=== PATIENT | female | born 1940 | race Caucasian/White ===

== ENCOUNTER 2019-04-05 12:29 | Inpatient (IN) ==
[2019-04-05] MEDS ORDERED: ALBUTEROL SULFATE 2.5 MG/0.5 ML VIAL.NEB IH ONE (12:54)
[2019-04-05] MEDS ORDERED: ASPIRIN 81 MG TAB.CHEW PO ONE (12:54)
--- NOTE | 2019-04-05 13:01 | ERNOTE ---
Time Seen by Provider: 04/05/19 12:47 Stated Complaint: sob Presenting Symptoms:: cough Source: patient Exam Limitations: no limitations Immunizations: IMMUNIZATION HX Immunizations Up to Date Yes Allergies/Adverse Reactions: Allergies codeine Allergy (Verified 04/05/19 12:43) Hives acetaminophen [From Tylenol] Adverse Reaction (Verified 04/05/19 12:43) Vomiting Home Medications: HOME MEDICATIONS Albuterol Sulfate [Ventolin HFA] 1 puff INHALATION Q6H 04/05/19 [Last Taken Unknown] - History of Present Ilness Narrative: Patient started about a month ago with URI symptoms, mainly shortness of breath and cough. She was initially seen at the acute care clinic in [place], was given Rx for prednisone, albuterol and a medication for mucus. Her symptoms have not improved but progressed since, shortness of breath with exertion and laying flat in bed, needs two pillows to sleep. She stopped smoking over 20 years ago after 15py history, no history of lung or heart disease Timing: getting worse Severity: moderate Frequency/Possible Cause: Reports: no prior episodes Modifying Factors - Improves: Reports: rest Modifying Factors - Worsens: Reports: activity Associated Symptoms: Reports: chest pain/soreness - with activity, cough, shortness of breath. Denies: fever/chills Prior Treatment: Reports: recently seen. Denies: currently on antibiotics Medical History (Updated 04/05/19 @ 14:15 by Keiko Lau MD) No significant medical problems Surgical History: Surgical History (Updated 04/05/19 @ 12:43 by Demetrice Dubon RN) No history of previous surgery Social History: (Last Reviewed 04/05/19 @ 13:01 by Keiko Lau MD) Tobacco: Smoking Status: Former smoker Alcohol: alcohol intake: current Alcohol type: wine alcohol intake frequency: a few times a month Substance Use: substance use type: does not use Physical Exam - Physical Exam General Appearance: Present: wd/wn, alert, no apparent distress Ears, Nose, Throat: Present: normal pharynx Respiratory: Present: chest nontender, expiration (prolonged), wheezing, other - increased respiratory rate and work of breathing Cardiovascular/Chest: Present: regular rate, rhythm, no murmur Gastrointestinal/Abdominal: Present: normal bowel sounds, nontender, nondistended, soft Extremity Exam: Present: pedal edema - trace on ankles Neurological Exam: Present: alert, oriented, normal mood/affect Skin Exam: Present: normal color, warm/dry Progress - Results and Orders Patient's Lab Results:: I have reviewed the patient's lab results. - Vital Signs Patient's Vital Signs:: I have reviewed the patient's vital signs. Vital Signs: Vital Signs 04/05/19 12:34 04/05/19 12:45 Temperature 36.5 C Pulse Rate 90 84 Respiratory Rate 24 H 20 Blood Pressure 181/98 H 193/96 H O2 Sat by Pulse Oximetry 86 L 95 - EKG EKG #1 EKG: NSR, no ST T wave changes EKG read: Interp. by me - Progress/Reassessment Chief Complaint: Upper Respiratory Symptoms Progress Note-Subjective: 04/05/19 13:49 not much improvement in wheezing after albuterol treatment 04/05/19 14:04 discussed test results with patient and friend offered admission for CHF/COPD and hypoxemia 04/05/19 14:10 discussed with bay Adam to admit for CHF/COPD, hypoxemia 04/05/19 14:36 500ml output after lasix 20mg slightly improved air movement and wheezing Departure Clinical Impression: CHF (congestive heart failure) Qualifiers: Heart failure type: unspecified Heart failure chronicity: acute Qualified Code(s): I50.9 - Heart failure, unspecified COPD (chronic obstructive pulmonary disease) Qualifiers: COPD type: unspecified COPD Qualified Code(s): J44.9 - Chronic obstructive pulmonary disease, unspecified - Departure Disposition: Still a patient Condition: Stable
[2019-04-05 13:09] LABS: Hematocrit 49.8 % (37.0-47.0); Hemoglobin 16.4 gm/dL (12.5-16.0); Mean Cell Volume 96.7 fl (78-100); Mean Corpuscular Hemoglobin 31.8 pg (27-31); Mean Corpuscular Hgb Conc 32.9 g/dl (32-36); Mean Platelet Volume 10.9 fl (8-12.5); Neutrophil # 3.6 K/mm3 (1.3-6.0); Neutrophil % 56.6 % (42-75.0); Platelet Count 253 K/mm3 (150-450); Red Blood Count 5.15 M/mm3 (4.2-5.4); Red Cell Distribution Width 13.3 % (11.5-14.0); White Blood Count 6.3 K/mm3 (4.0-10.5)
[2019-04-05 13:28] LABS: Albumin * 3.9 gm/dl (3.4-5.0); Anion Gap 12.1 mmol/L (6.8-13.8); BUN/Creatinine Ratio 26.3 (9.0-21.6); Bilirubin, Total 0.4 mg/dL (0.0-1.1); Ca. Corrected For Albumin 9.4 mg/dL (8.4-10.2); Calcium * 9.6 mg/dL (7.9-10.9); Carbon Dioxide 30.4 mmol/L (24-32.6); Potassium 4.5 mmol/L (3.4-4.6); Total Protein 7.5 gm/dL (6.2-8.2); Troponin I 0.17 ng/mL (0.00-0.10)
[2019-04-05] MEDS ORDERED: FUROSEMIDE 10 MG/ML VIAL IV ONE (13:47)
[2019-04-05] MEDS ORDERED: LISINOPRIL 5 MG TABLET PO SCH (14:30)
[2019-04-05 14:36] LABS: Urine Bilirubin Negative (NEGATIVE); Urine Blood Negative /ul (NEGATIVE); Urine Ketone Negative (NEGATIVE); Urine Nitrite Negative (NEGATIVE); Urine Protein Negative (NEGATIVE); Urine Urobilinogen Normal (NORMAL)
[2019-04-05 14:56] LABS: Urine Appearance Clear (CLEAR); Urine Bacteria None Seen; Urine Color Pale Yellow; Urine RBC None Seen /hpf (0-5); Urine WBC 0-5 /hpf (0-5)
--- NOTE | 2019-04-05 15:47 | HP ---
Chief Complaint - Chief Complaint Date of Service: 04/05/19 Time of Service: 03:08 Chief Complaint: SOB and dry cough for 1 month History of Present Illness: 78-year-old female with no significant past medical history presents with co mplaints of shortness of breath and nonproductive cough for the past 1 month. She states that she went to an urgent care 1 month ago and was diagnosed with cold. She was given an inhaler and prednisone and asked to follow-up with her primary care physician in 1 month. She states her symptoms began to progressively worsen and she presented to the emergency room today. Chest x-ray in the ER is positive for pulmonary venous congestion/interstitial edema, mild cardiomegaly suggestive of congestive heart failure, hyperinflated lung volumes compatible with COPD/emphysema. BNP is 190, mild elevation of her troponin at 0.0.17. On presentation she was found to be hypoxic with oxygen saturation of 86%. She was placed on 2 L nasal cannula with oxygen improving to the 90s. Was also found to be hypertensive. Blood pressure of 192/101. She was started on any milligrams IV Lasix, albuterol and lisinopril 5 mg. Should be admitted for further evaluation and management of new onset congestive heart failure and COPD. Medical History (Updated 04/05/19 @ 16:31 by Antoinette Montgomery MD) No significant medical problems Surgical History: Surgical History (Updated 04/05/19 @ 14:09 by Demetrice Dubon RN) History of bunionectomy Family History: Family History (Last Updated 04/05/19 @ 15:04 by Susie Ocampo RN) Mother Father Emphysema/COPD Social History: (Last Updated 04/05/19 @ 15:10 by Susie Ocampo RN) Social History: Marital status: / lives independently: Yes number of children: 3 number of grandchildren: 6 caregiver/support person: Yes caregiver/support person comment: Erica Wadsworth current occupational status: retired Highest education level completed: Associate degree: academi Financial difficulty paying for basics: not very hard Tobacco: Smoking Status: Former smoker Alcohol: alcohol intake: current Alcohol type: wine alcohol intake frequency: a few times a month Substance Use: substance use type: does not use Pets: pets and animals: none Exercise: Physical activity type: bicycling Physical activity counseling: advised >2 times/week res Physical activity functional status: independent ambulation Moderate/strenuous exercise - number of days: 5 frequency: 5-6 times per week duration: 15-30 minutes/day Tatyana/Synagogue: tatyana/buddhist: Muslim Tatyana Safety: seatbelt use: always Home Safety: water heater temp set < 120 deg: Yes working smoke detector in home: Yes fire extinguisher in home: Yes carbon monox detector in home: No firearms in home: Yes firearms unloaded and locked: Yes Review Of Systems (GEN) - Review of Systems Generalized/Overall Review: Absent: Chills, Fever EENTM: Absent: Eye Pain Respiratory: Present: Cough, Shortness of Breath Cardiac: Absent: Chest Pain Abdominal: Absent: Abdominal Pain Misc: All systems neg except as marked Immunizations: IMMUNIZATION HX Immunizations Up to Date Yes Allergies/Adverse Reactions: Allergies Allergy/AdvReac Type Severity Reaction Status Date / Time codeine Allergy Mild Hives Verified 04/05/19 15:03 acetaminophen [From Tylenol] AdvReac Intermediate Vomiting Verified 04/05/19 15:03 Home Medications: HOME MEDICATIONS Albuterol Sulfate [Ventolin HFA] 1 puff INHALATION Q6H 04/05/19 [Last Taken Unknown] Beta-Carotene(A) W-C , E/Min [Ocuvite] 1 tab PO Q2D 04/05/19 [Last Taken 04/03/19] Cholecalciferol [Vitamin D] 2,000 unit PO Q2D 04/05/19 [Last Taken 04/03/19] Cyanocobalamin (Vitamin B-12) [Vitamin B-12] 1,000 mcg PO Q2D 04/05/19 [Last Taken 04/03/19] Exam - Exam Vital Signs: Vital Signs - Last Taken Temp 36.6 C 04/05/19 15:00 Pulse 82 04/05/19 15:00 Resp 18 04/05/19 15:00 BP 165/88 H 04/05/19 15:00 Pulse Ox 95 04/05/19 15:00 Constitutional: Present: Alert, Cooperative, Well developed, Well nourished, Elderly ENT Exam: Present: hearing grossly normal Eye Exam: bilateral eye: normal inspection Neck: Present: non-tender, trachea midline. Absent: lymphadenopathy (R), lymphadenopathy (L) Back Exam: Present: normal inspection, no CVA tenderness. Absent: vertebral tenderness Respiratory: Present: no accessory muscle use, crackles - Mild in left lung base, wheezing - Expiratory wheezes noted bilaterally throughout. Absent: lungs clear, rhonchi Cardiovascular/Chest: Present: normal peripheral pulses, regular rate, rhythm, no murmur, edema - 1+ bilateral lower extremities Peripheral Pulses: dorsalis-pedis (R): 1+, dorsalis-pedis (L): 1+ Abdomen: Present: Normal bowel sounds, soft, nontender Extremity: Present: lower extremity edema - 1+. Bilateral lower extremities Skin Exam: Present: normal color, warm/dry Neurologic: Present: alert, normal mood/affect Appearance: Present: appropriate appearance, appropriate insight Eye contact: Present: cooperative, good eye contact Thoughts: Present: normal thought pattern, normal mood /affect Diagnostic Studies: Abnormal Lab Results 04/05/19 04/05/19 Range/Units 12:55 12:55 Hgb 16.4 H (12.5-16.0) gm/dL Hct 49.8 H (37.0-47.0) % MCH 31.8 H (27-31) pg Eosinophils % 13.1 H (0.0-3.0) % Lymphocytes # 1.34 L (1.5-3.5) k/mm3 Eosinophils # 0.8 H (0.0-0.7) k/mm3 BUN 26 H (3-23) mg/dL Est GFR (Non-Af Amer) 58 L (60-130) mL/min BUN/Creatinine Ratio 26.3 H (9.0-21.6) Troponin I 0.170 H* (0.00-0.10) ng/mL Laboratory Results WBC 6.3 K/mm3 (4.0-10.5) 04/05/19 12:55 RBC 5.15 M/mm3 (4.2-5.4) 04/05/19 12:55 Hgb 16.4 gm/dL (12.5-16.0) H 04/05/19 12:55 Hct 49.8 % (37.0-47.0) H 04/05/19 12:55 MCV 96.7 fl (78-100) 04/05/19 12:55 MCH 31.8 pg (27-31) H 04/05/19 12:55 MCHC 32.9 g/dl (32-36) 04/05/19 12:55 RDW 13.3 % (11.5-14.0) 04/05/19 12:55 Plt Count 253 K/mm3 (150-450) 04/05/19 12:55 MPV 10.9 fl (8-12.5) 04/05/19 12:55 Immature Gran % (Auto) 0.20 % (0.001-0.429) 04/05/19 12:55 Immature Gran # (Auto) 0.01 K/mm3 (0.000-0.0310) 04/05/19 12:55 56.6 % (42-75.0) 04/05/19 12:55 21.2 % (20-51) 04/05/19 12:55 8.1 % (0.0-9) 04/05/19 12:55 13.1 % (0.0-3.0) H 04/05/19 12:55 0.8 % (0.0-1.0) 04/05/19 12:55 Nucleated RBC % 0.0 k/mm3 (0-1) 04/05/19 12:55 3.6 K/mm3 (1.3-6.0) 04/05/19 12:55 1.34 k/mm3 (1.5-3.5) L 04/05/19 12:55 0.5 k/mm3 (0.0-1.0) 04/05/19 12:55 0.8 k/mm3 (0.0-0.7) H 04/05/19 12:55 Absolute Basophils 0.1 k/mm3 (0.0-0.1) 04/05/19 12:55 Sodium 140 mmol/L (132-142) 04/05/19 12:55 140 mmol/L (130-142) 04/05/19 12:55 Potassium 4.5 mmol/L (3.4-4.6) 04/05/19 12:55 Chloride 102 mmol/L (97-106) 04/05/19 12:55 Carbon Dioxide 30.4 mmol/L (24-32.6) 04/05/19 12:55 12.1 mmol/L (6.8-13.8) 04/05/19 12:55 BUN 26 mg/dL (3-23) H 04/05/19 12:55 0.99 mg/dL (0.4-1.4) 04/05/19 12:55 Est GFR (Non-Af Amer) 58 mL/min (60-130) L 04/05/19 12:55 26.3 (9.0-21.6) H 04/05/19 12:55 103 mg/dL (70-110) 04/05/19 12:55 Calcium 9.6 mg/dL (7.9-10.9) 04/05/19 12:55 Calcium Adj for Albumin 9.4 mg/dL (8.4-10.2) 04/05/19 12:55 0.4 mg/dL (0.0-1.1) 04/05/19 12:55 AST 26 U/L (0-48) 04/05/19 12:55 ALT 30 U/L (19-67) 04/05/19 12:55 102 U/L (50-170) 04/05/19 12:55 0.170 ng/mL (0.00-0.10) H* 04/05/19 12:55 B-Natriuretic Peptide 190 pg/mL (5-550) 04/05/19 12:55 7.5 gm/dL (6.2-8.2) 04/05/19 12:55 3.9 gm/dl (3.4-5.0) 04/05/19 12:55 Pale yellow 04/05/19 14:31 Clear (CLEAR) 04/05/19 14:31 6.0 pH (5.0-7.0) 04/05/19 14:31 Ur Specific [place] 1.010 SP.GR. (1.005-1.010) 04/05/19 14:31 Negative mg/dL (NEGATIVE) 04/05/19 14:31 Negative mg/dL (NEGATIVE) 04/05/19 14:31 Negative mg/dL (NEGATIVE) 04/05/19 14:31 Negative /ul (NEGATIVE) 04/05/19 14:31 Negative (NEGATIVE) 04/05/19 14:31 Negative mg/dl (NEGATIVE) 04/05/19 14:31 Normal EU/dl (NORMAL) 04/05/19 14:31 Ur Leukocyte Esterase Negative /ul (NEGATIVE) 04/05/19 14:31 None seen /hpf (0-5) 04/05/19 14:31 0-5 /hpf (0-5) 04/05/19 14:31 Ur Epithelial Cells 0-5 /hpf (0-5) 04/05/19 14:31 None seen (NONE) 04/05/19 14:31 No culture indicated 04/05/19 14:31 Assessment/Plan - Narrative Narrative: 78-year-old female with no significant past medical history presents with complaints of shortness of breath and nonproductive cough for the past 1 month. She states that she went to an urgent care 1 month ago and was diagnosed with cold. She states her symptoms began to progressively worsen and she presented to the emergency room today. Chest x-ray in the ER is positive for pulmonary venous congestion/interstitial edema, mild cardiomegaly suggestive of congestive heart failure, hyperinflated lung volumes compatible with COPD/emphysema. BNP is 190, mild elevation of her troponin at 0.0.17. She will be admitted for further evaluation and management of new onset congestive heart failure and COPD. - Assessment/Plan (1) New onset of congestive heart failure Assessment: She will need an echocardiogram that she can get as an outpatient. Start Lasix 20 mg twice a day, strict I's and O's and daily weights. Problem: Acute (2) COPD (chronic obstructive pulmonary disease) Assessment: Start duo nebs every 6 hours as needed for shortness of breath and oxygen supplementation as needed. Problem: Acute Qualifiers: COPD type: unspecified COPD Qualified Code(s): J44.9 - Chronic obstructive pulmonary disease, unspecified (3) HTN (hypertension) Assessment: I will give her 1 more dose of lisinopril 5 mg because her blood pressure still elevated. I will start her on 10 mg daily starting tomorrow. Problem: Acute Qualifiers: Hypertension type: essential hypertension Qualified Code(s): I10 - Essential (primary) hypertension
[2019-04-05] MEDS ORDERED: LISINOPRIL 5 MG TABLET PO ONE (16:45)
[2019-04-05 19:25] LABS: CKMB 4.2 ng/mL (0.0-9.0)
[2019-04-05 19:34] LABS: Troponin I 0.25 ng/mL (0.00-0.10)
[2019-04-05] MEDS: FUROSEMIDE 10 MG/ML VIAL IV SCH (19:48)
[2019-04-06] MEDS: ALBUTEROL SULFATE/IPRATROPIUM 3 ML NEBU IH PRN (03:01)
[2019-04-06 05:34] LABS: Hemoglobin 16.7 gm/dL (12.5-16.0); Mean Cell Volume 96.4 fl (78-100); Mean Corpuscular Hemoglobin 31.6 pg (27-31); Mean Corpuscular Hgb Conc 32.7 g/dl (32-36); Neutrophil % 54.6 % (42-75.0); Platelet Count 258 K/mm3 (150-450); Red Blood Count 5.29 M/mm3 (4.2-5.4); Red Cell Distribution Width 13.3 % (11.5-14.0); White Blood Count 7.3 K/mm3 (4.0-10.5)
[2019-04-06 05:46] LABS: Albumin * 4.1 gm/dl (3.4-5.0); Anion Gap 13.8 mmol/L (6.8-13.8); BUN/Creatinine Ratio 24.2 (9.0-21.6); Bilirubin, Total 0.6 mg/dL (0.0-1.1); Ca. Corrected For Albumin 9.1 mg/dL (8.4-10.2); Calcium * 9.5 mg/dL (7.9-10.9); Carbon Dioxide 30.3 mmol/L (24-32.6); Potassium 4.1 mmol/L (3.4-4.6); Total Protein 7.7 gm/dL (6.2-8.2)
[2019-04-06] MEDS: FUROSEMIDE 10 MG/ML VIAL IV SCH (06:53)
[2019-04-06] MEDS: LISINOPRIL 5 MG TABLET PO SCH (08:33)
[2019-04-06] MEDS ORDERED: CHOLECALCIFEROL 1,000 UNIT CAPSULE PO SCH (09:00)
[2019-04-06] MEDS ORDERED: CYANOCOBALAMIN 1,000 MCG TABLET PO SCH (09:00)
[2019-04-06] MEDS ORDERED: LISINOPRIL 10 MG TABLET PO SCH (09:00)
[2019-04-06] MEDS: ALBUTEROL SULFATE 2.5 MG/0.5 ML VIAL.NEB IH PRN (10:40)
[2019-04-06] MEDS ORDERED: ENOXAPARIN SODIUM 40 MG/0.4 ML SYRG SC SCH (10:45)
--- NOTE | 2019-04-06 11:07 | PN ---
Subjective - Date and Time Seen Date: 04/06/19 Time: 09:15 Objective - Review of Systems Generalized/Overall Review: Denies: Chills, Fever Respiratory: Denies: Shortness of Breath Cardiac: Denies: Chest Pain, Edema Abdominal: Denies: Abdominal Pain Misc: All systems neg except as marked - Vitals Vitals: Last Vital Signs Temp 36.4 C 04/06/19 07:06 Pulse 83 04/06/19 10:50 Resp 19 04/06/19 10:50 BP 132/79 04/06/19 08:33 Pulse Ox 93 04/06/19 10:44 - Abnormal Lab Findings Abnormal Lab Findings: Abnormal Lab Results 04/05/19 04/05/19 04/05/19 Range/Units 12:55 12:55 19:00 Hgb 16.4 H (12.5-16.0) gm/dL Hct 49.8 H (37.0-47.0) % MCH 31.8 H (27-31) pg Lymphocytes % (20-51) % Eosinophils % 13.1 H (0.0-3.0) % Lymphocytes # 1.34 L (1.5-3.5) k/mm3 Eosinophils # 0.8 H (0.0-0.7) k/mm3 BUN 26 H (3-23) mg/dL Est GFR (Non-Af Amer) 58 L (60-130) mL/min BUN/Creatinine Ratio 26.3 H (9.0-21.6) CK-MB (CK-2) Rel Index 6.7 H (0.0-3.6) Troponin I 0.170 H* 0.250 H* (0.00-0.10) ng/mL 04/06/19 04/06/19 04/06/19 Range/Units 01:05 05:25 05:25 Hgb 16.7 H (12.5-16.0) gm/dL Hct 51.0 H (37.0-47.0) % MCH 31.6 H (27-31) pg Lymphocytes % 19.4 L (20-51) % Eosinophils % 16.4 H (0.0-3.0) % Lymphocytes # 1.41 L (1.5-3.5) k/mm3 Eosinophils # 1.2 H (0.0-0.7) k/mm3 BUN 29 H (3-23) mg/dL Est GFR (Non-Af Amer) 46 L D (60-130) mL/min BUN/Creatinine Ratio 24.2 H (9.0-21.6) CK-MB (CK-2) Rel Index (0.0-3.6) Troponin I 0.166 H* (0.00-0.10) ng/mL - Exam Constitutional: Present: Alert, Cooperative, Well developed, Well nourished, No distress, Elderly ENT Exam: Present: hearing grossly normal Neck: Absent: lymphadenopathy (R), lymphadenopathy (L) Respiratory: Present: no respiratory distress, no accessory muscle use, wheezing - End-expiratory bilaterally throughout all lung martinez. Absent: crackles, rhonchi Cardiovascular/Chest: Present: normal peripheral pulses, regular rate, rhythm, no murmur, edema - Trace bilateral lower extremity edema Abdomen: Present: Normal bowel sounds, soft, nontender Extremity: Present: lower extremity edema - Trace bilateral lower extremity Skin Exam: Present: normal color, warm/dry Neurologic: Present: alert, normal mood/affect Appearance: Present: appropriate appearance, appropriate insight Eye contact: Present: cooperative, good eye contact Thoughts: Present: normal thought pattern, normal mood /affect Assessment/Plan Plan Narrative: 78-year-old female with no significant past medical history presents with complaints of shortness of breath and nonproductive cough for the past 1 month. She states that she went to an urgent care 1 month ago and was diagnosed with cold. Chest x-ray in the ER is positive for pulmonary venous congestion/i nterstitial edema, mild cardiomegaly suggestive of congestive heart failure, hyperinflated lung volumes compatible with COPD/emphysema. BNP is 190, mild elevation of her troponin at 0.0.17. On presentation she was found to be hypoxic with oxygen saturation of 86%. She was placed on 2 L nasal cannula with oxygen improving to the 90s. Was also found to be hypertensive. Blood pressure of 192/101. She was started on 20 milligrams IV Lasix, albuterol and lisinopril 5 mg. Should be admitted for further evaluation and management of new onset congestive heart failure exacerbation and COPD exacerbation. She feels much better today however on ambulation her oxygenation dropped down into the 80s. She continues to have an expiratory wheezing. I will start her on prednisone 40 mg daily for 5 days. She has diuresed 1.2 L in the past 24 hours. Continue with Lasix 20 mg IV daily. Blood pressure has improved significantly with the lisinopril. Continue lisinopril 5 mg daily. Continue to wean off of supplemental oxygen as tolerated. - Problems/Diagnosis (1) New onset of congestive heart failure Problem: Acute (2) COPD (chronic obstructive pulmonary disease) Problem: Acute Qualifiers: COPD type: unspecified COPD Qualified Code(s): J44.9 - Chronic obstructive pulmonary disease, unspecified (3) HTN (hypertension) Problem: Acute Qualifiers: Hypertension type: essential hypertension Qualified Code(s): I10 - Essential (primary) hypertension (4) Acute kidney injury Problem: Acute Narrative: Likely secondary to diuresis. I will cut back to Lasix 20 mg oral daily. Repeat BMP in the morning.
[2019-04-06] MEDS: predniSONE 20 MG TABLET PO SCH (11:35)
[2019-04-07 05:22] LABS: Hematocrit 49.8 % (37.0-47.0); Hemoglobin 16.4 gm/dL (12.5-16.0); Mean Cell Volume 96.5 fl (78-100); Mean Corpuscular Hemoglobin 31.8 pg (27-31); Mean Corpuscular Hgb Conc 32.9 g/dl (32-36); Neutrophil # 5.3 K/mm3 (1.3-6.0); Neutrophil % 69.5 % (42-75.0); Platelet Count 259 K/mm3 (150-450); Red Blood Count 5.16 M/mm3 (4.2-5.4); Red Cell Distribution Width 13.2 % (11.5-14.0); White Blood Count 7.7 K/mm3 (4.0-10.5)
[2019-04-07 05:34] LABS: Albumin * 3.6 gm/dl (3.4-5.0); Anion Gap 16.1 mmol/L (6.8-13.8); Bilirubin, Total 0.5 mg/dL (0.0-1.1); Ca. Corrected For Albumin 9.4 mg/dL (8.4-10.2); Calcium * 9.4 mg/dL (7.9-10.9); Carbon Dioxide 28.3 mmol/L (24-32.6); Potassium 4.4 mmol/L (3.4-4.6); Total Protein 7.1 gm/dL (6.2-8.2)
[2019-04-07] MEDS: ALBUTEROL SULFATE 2.5 MG/0.5 ML VIAL.NEB IH PRN (08:58)
[2019-04-07] MEDS: ALBUTEROL SULFATE/IPRATROPIUM 3 ML NEBU IH PRN (08:58)
[2019-04-07] MEDS ORDERED: FUROSEMIDE 20 MG TABLET PO SCH (09:00)
[2019-04-07] MEDS: LISINOPRIL 5 MG TABLET PO SCH (09:23)
[2019-04-07] MEDS: predniSONE 20 MG TABLET PO SCH (09:23)
--- NOTE | 2019-04-07 11:27 | DS ---
Date of Discharge:: 04/07/19 Description of Stay: Per the H&P, "78-year-old female with no significant past medical history pr esents with complaints of shortness of breath and nonproductive cough for the past 1 month. She states that she went to an urgent care 1 month ago and was diagnosed with cold. She was given an inhaler and prednisone and asked to follow-up with her primary care physician in 1 month. She states her symptoms began to progressively worsen and she presented to the emergency room today. Chest x-ray in the ER is positive for pulmonary venous congestion/interstitial edema, mild cardiomegaly suggestive of congestive heart failure, hyperinflated lung volumes compatible with COPD/emphysema. BNP is 190, mild elevation of her troponin at 0.0.17. On presentation she was found to be hypoxic with oxygen saturation of 86%. She was placed on 2 L nasal cannula with oxygen improving to the 90s. Was also found to be hypertensive. Blood pressure of 192/101. She was started on any milligrams IV Lasix, albuterol and lisinopril 5 mg. Should be admitted for further evaluation and management of new onset congestive heart failure and COPD." Blood pressure and respiratory rate improved throughout her stay. She continued to have some wheezing, which improved with nebulizer treatments. She reports hawkins namg been prescribed ventolin, but her insurance company wouldn't cover it for a diagnosis of wheezing. She improved after lasix and prednisone. Her BP improved with 5 mg lisinopril. On the day of DC, she felt better, and was ready to go home. Her oxygen remained greater than 88% with ambulation on room air. Will order ventolin for DC, and a nebulizer with albuterol solution. Procedures Performed: none Results and Findings: Lab Pending Results 04/05/19 12:55: WBC 6.3, RBC 5.15, Hgb 16.4 H, Hct 49.8 H, MCV 96.7, MCH 31.8 H, MCHC 32.9, RDW 13.3, Plt Count 253, MPV 10.9, Immature Gran % (Auto) 0.20, Immature Gran # (Auto) 0.01, Neutrophils % 56.6, Lymphocytes % 21.2, Monocytes % 8.1, Eosinophils % 13.1 H, Basophils % 0.8, Nucleated RBC % 0.0, Neutrophils # 3.6, Lymphocytes # 1.34 L, Monocytes # 0.5, Eosinophils # 0.8 H, Absolute Basophils 0.1 04/05/19 12:55: Sodium 140, Plasma Sodium 140, Potassium 4.5, Chloride 102, Carbon Dioxide 30.4, Anion Gap 12.1, BUN 26 H, Creatinine 0.99, Est GFR (Non-Af Amer) 58 L, BUN/Creatinine Ratio 26.3 H, Random Glucose 103, Calcium 9.6, Calcium Adj for Albumin 9.4, Total Bilirubin 0.4, AST 26, ALT 30, Alkaline Phosphatase 102, Troponin I 0.170 H*, B-Natriuretic Peptide 190, Total Protein 7.5, Albumin 3.9 04/05/19 14:31: Urine Color Pale yellow, Urine Appearance Clear, Urine pH 6.0, Ur Specific [place] 1.010, Urine Protein Negative, Urine Glucose (UA) Negative, Urine Ketones Negative, Urine Blood Negative, Urine Nitrate Negative, Urine Bilirubin Negative, Urine Urobilinogen Normal, Ur Leukocyte Esterase Negative, Urine RBC None seen, Urine WBC 0-5, Ur Epithelial Cells 0-5, Urine Bacteria None seen, Urine Culture Comments No culture indicated 04/05/19 19:00: Creatine Kinase 63, CK-MB (CK-2) 4.2, CK-MB (CK-2) Rel Index 6.7 H, Troponin I 0.250 H* 04/06/19 01:05: Troponin I 0.166 H* 04/06/19 05:25: WBC 7.3, RBC 5.29, Hgb 16.7 H, Hct 51.0 H, MCV 96.4, MCH 31.6 H, MCHC 32.7, RDW 13.3, Plt Count 258, MPV 11.0, Immature Gran % (Auto) 0.10, Immature Gran # (Auto) 0.01, Neutrophils % 54.6, Lymphocytes % 19.4 L, Monocytes % 8.9, Eosinophils % 16.4 H, Basophils % 0.6, Nucleated RBC % 0.0, Neutrophils # 4.0, Lymphocytes # 1.41 L, Monocytes # 0.7, Eosinophils # 1.2 H, Absolute Basophils 0.0 04/06/19 05:25: Sodium 140, Plasma Sodium 140, Potassium 4.1, Chloride 100, Carbon Dioxide 30.3, Anion Gap 13.8, BUN 29 H, Creatinine 1.20, Est GFR (Non-Af Amer) 46 L D, BUN/Creatinine Ratio 24.2 H, Random Glucose 99, Calcium 9.5, Calcium Adj for Albumin 9.1, Total Bilirubin 0.6, AST 29, ALT 24, Alkaline Ph osphatase 101, Total Protein 7.7, Albumin 4.1 04/07/19 05:19: WBC 7.7, RBC 5.16, Hgb 16.4 H, Hct 49.8 H, MCV 96.5, MCH 31.8 H, MCHC 32.9, RDW 13.2, Plt Count 259, MPV 11.0, Immature Gran % (Auto) 0.30, Immature Gran # (Auto) 0.02, Neutrophils % 69.5, Lymphocytes % 19.1 L, Monocytes % 9.8 H, Eosinophils % 1.0, Basophils % 0.3, Nucleated RBC % 0.0, Neutrophils # 5.3, Lymphocytes # 1.46 L, Monocytes # 0.8, Eosinophils # 0.1, Absolute Basophils 0.0 04/07/19 05:19: Sodium 138, Plasma Sodium 138, Potassium 4.4, Chloride 98, Carbon Dioxide 28.3, Anion Gap 16.1 H, BUN 40 H, Creatinine 1.25, Est GFR (Non- Af Amer) 44 L, BUN/Creatinine Ratio 32.0 H, Random Glucose 108, Calcium 9.4, Calcium Adj for Albumin 9.4, Total Bilirubin 0.5, AST 21, ALT 15 L, Alkaline Phosphatase 93, Total Protein 7.1, Albumin 3.6 Discharge Location: Home Disposition: Home self-care Condition: Stable Discharge Activity: Activity as tolerated Discharge Diet: General/regular food Additional Patient Instructions (free text): -Please make TCM appointment with Dr. Montgomery unless fpc discharge, or if following up with outside provider. Thank you! Damaris @ [facility] [phone] or Angeline at [facility] [phone]. Prescriptions (Any new or edited meds): Albuterol Sulfate/Ipratropium [Duoneb 2.5-0.5MG/3ML Soln] 3 ml INHALATION Q6H PRN #1 bottle PRN Reason: Shortness Of Breath/Wheezing Furosemide [Lasix] 20 mg PO DAILY #30 tab predniSONE [Prednisone] 40 mg PO DAILY #3 tab Albuterol Sulfate [Ventolin HFA] 1 puff INHALATION Q6H #1 inhaler Lisinopril [Zestril] 5 mg PO DAILY #30 tab Complete Home Medications List: Complete Home Medication List: Albuterol Sulfate [Ventolin HFA] 1 puff INHALATION Q6H 04/05/19 Beta-Carotene(A) W-C , E/Min [Ocuvite] 1 tab PO Q2D 04/05/19 Bimatoprost [Lumigan 0.01% Ophthalmic Solution] 1 drp EACHEYE HS 04/05/19 Cholecalciferol [Vitamin D] 2,000 unit PO Q2D 04/05/19 Cyanocobalamin (Vitamin B-12) [Vitamin B-12] 1,000 mcg PO Q2D 04/05/19 Albuterol Sulfate [Ventolin HFA] 1 puff INHALATION Q6H #1 inhaler 04/07/19 Albuterol Sulfate/Ipratropium [Duoneb 2.5-0.5MG/3ML Soln] 3 ml INHALATION Q6H PRN #1 bottle 04/07/19 Furosemide [Lasix] 20 mg PO DAILY #30 tab 04/07/19 Lisinopril [Zestril] 5 mg PO DAILY #30 tab 04/07/19 predniSONE [Prednisone] 40 mg PO DAILY #3 tab 04/07/19
[2019-04-07 12:07] VITALS: BP 131/59
== END 2019-04-07 12:35 | disposition home or self-care (01) | DRG 292 ==
LOC: ER 12:29 → MS 12:29 → OBSVTOIN 14:18 → MS 14:52
PROVIDERS: ADMIT Internal Medicine; ATTEND Internal Medicine
DX: I50.9 Heart failure, unspecified; T50.1X5A Adverse effect of loop [high-ceiling] diuretics, initial encounter; J44.9 Chronic obstructive pulmonary disease, unspecified; I11.0 Hypertensive heart disease with heart failure; N17.9 Acute kidney failure, unspecified; R09.02 Hypoxemia; Z87.891 Personal history of nicotine dependence; R74.8 Abnormal levels of other serum enzymes
CPT/HCPCS: 36415; 71020; 71046; 80053; 81001; 82550; 82553; 83519; 83880; 84484; 85025; 93005; 94640; 94664; 94760; 96374; 96376; 99284; G0378

== ENCOUNTER 2019-04-23 10:44 | Observation (INO) ==
[2019-04-23] MEDS ORDERED: ALBUTEROL SULFATE/IPRATROPIUM 3 ML NEBU IH ONE (11:05)
[2019-04-23] MEDS ORDERED: predniSONE 20 MG TABLET PO ONE (11:06)
[2019-04-23 11:18] LABS: Hematocrit 49.4 % (37.0-47.0); Hemoglobin 16.1 gm/dL (12.5-16.0); Mean Cell Volume 97.2 fl (78-100); Mean Corpuscular Hemoglobin 31.7 pg (27-31); Mean Corpuscular Hgb Conc 32.6 g/dl (32-36); Neutrophil # 5.4 K/mm3 (1.3-6.0); Neutrophil % 65.2 % (42-75.0); Platelet Count 211 K/mm3 (150-450); Red Blood Count 5.08 M/mm3 (4.2-5.4); Red Cell Distribution Width 13.4 % (11.5-14.0); White Blood Count 8.3 K/mm3 (4.0-10.5)
[2019-04-23 11:26] LABS: Prothrombin Time (Patient) 9.9 Seconds (9.1-10.7)
[2019-04-23 11:27] LABS: Partial Thrombolplastin Time 25.1 Seconds (24-32)
[2019-04-23 11:34] LABS: ALT 22 U/L (19-67); AST 20 U/L (0-48); Albumin * 4.1 gm/dl (3.4-5.0); Alkaline Phosphatase * 79 U/L (50-170); Anion Gap 12.2 mmol/L (6.8-13.8); BNP * 122 pg/mL (5-550); BUN/Creatinine Ratio 31.5 (9.0-21.6); Bilirubin, Total 0.4 mg/dL (0.0-1.1); Blood Urea Nitrogen 39 mg/dL (3-23); Ca. Corrected For Albumin 9.3 mg/dL (8.4-10.2); Calcium * 9.7 mg/dL (7.9-10.9); Carbon Dioxide 30.6 mmol/L (24-32.6); Chloride 105 mmol/L (97-106); Glucose * 102 mg/dL (70-110); Potassium 4.8 mmol/L (3.4-4.6); Sodium 143 mmol/L (132-142); Total Protein 7.7 gm/dL (6.2-8.2); Troponin I Less than 0.017 ng/mL (0.00-0.10)
[2019-04-23] MEDS ORDERED: ALBUTEROL SULFATE 2.5 MG/0.5 ML VIAL.NEB IH ONE ×2 (12:16→12:23)
--- NOTE | 2019-04-23 13:29 | ERNOTE ---
Chest Pain/Cardiac HPI Date of Service: 04/23/19 Chief Complaint: Chest Pain Time Seen by Provider: 04/23/19 10:54 Source: patient Exam Limitations: no limitations Immunizations: IMMUNIZATION HX Immunizations Up to Date No History of Influenza Vaccine No Hx Pneumococcal Vaccination No Allergies/Adverse Reactions: Allergies codeine Allergy (Mild, Verified 04/23/19 10:59) Hives acetaminophen [From Tylenol] Adverse Reaction (Intermediate, Verified 04/23/19 10:59) Vomiting Home Medications: HOME MEDICATIONS Albuterol Sulfate [Ventolin HFA] 1 puff INHALATION Q6H 04/05/19 [Last Taken Unknown] Beta-Carotene(A) W-C , E/Min [Ocuvite] 1 tab PO Q2D 04/05/19 [Last Taken 04/03/19] Bimatoprost [Lumigan 0.01% Ophthalmic Solution] 1 drp EACHEYE HS 04/05/19 [Last Taken Unknown] Cholecalciferol [Vitamin D] 2,000 unit PO Q2D 04/05/19 [Last Taken 04/03/19] Cyanocobalamin (Vitamin B-12) [Vitamin B-12] 1,000 mcg PO Q2D 04/05/19 [Last Taken 04/03/19] Albuterol Sulfate [Ventolin HFA] 1 puff INHALATION Q6H #1 inhaler 04/07/19 [Last Taken Unknown] Albuterol Sulfate/Ipratropium [Duoneb 2.5-0.5MG/3ML Soln] 3 ml INHALATION Q6H PRN #1 bottle 04/07/19 [Last Taken Unknown] Furosemide [Lasix] 20 mg PO DAILY #30 tab 04/07/19 [Last Taken Unknown] Lisinopril [Zestril] 5 mg PO DAILY #30 tab 04/07/19 [Last Taken Unknown] predniSONE [Prednisone] 40 mg PO DAILY #3 tab 04/07/19 [Last Taken Unknown] Narrative: Patient presents to the ED for worsening SOB. She had been in the hospital for COPD and new onset CHF. She relates she felt good while she was on the steroids but since coming off the steroids her SOB has been worsening. She has chest tightness that she thinks is from coughing. No fever. This is gradual and gradually worsening. No fever. Mild leg swelling. She had an ECHO today and was sent here after that for her worsening SOB. Timing: constant, getting worse Severity/Quality: moderate Location: other - chest tightness, worse with cough Chest Pain Radiation: no radiation Activities at Onset: none Modifying Factors - Improves: Present: nothing Modifying Factors - Worsens: Present: other - cough Associated Symptoms: Present: cough, shortness of breath. Absent: headache, syncope, palpitations, vomiting, abdominal pain Prior Chest Pain/Cardiac Workup: Reports: echocardiogram Prior Treatment: Reports: recently seen, recently hospitalized Review of Systems - Review of Systems Constitutional: Absent: fever EYE: Present: no symptoms reported Respiratory: Present: shortness of breath, cough Cardiology: Present: See HPI Gastrointestinal/Abdominal: Absent: abdominal pain Neurological: Absent: weakness All Other Systems: All systems neg except as marked Medical History (Updated 04/16/19 @ 10:12 by Lisbeth Cortes CMA) Hypertension No significant medical problems Surgical History: Surgical History (Updated 04/05/19 @ 14:09 by Demetrice Dubon RN) History of bunionectomy Family History: Family History (Last Reviewed 04/23/19 @ 13:22 by Antony Licona MD) Mother Father Emphysema/COPD Social History: (Last Reviewed 04/23/19 @ 13:22 by Antony Licona MD) Social History: Marital status: / lives independently: Yes number of children: 3 number of grandchildren: 6 caregiver/support person: Yes caregiver/support person comment: Erica Wadsworth current occupational status: retired Highest education level completed: Associate degree: academi Financial difficulty paying for basics: not very hard Tobacco: Smoking Status: Former smoker Alcohol: alcohol intake: current Alcohol type: wine alcohol intake frequency: a few times a month Substance Use: substance use type: does not use Pets: pets and animals: none Exercise: Physical activity type: bicycling Physical activity counseling: advised >2 times/week res Physical activity functional status: independent ambulation Moderate/strenuous exercise - number of days: 5 frequency: 5-6 times per week duration: 15-30 minutes/day Tatyana/Pentecostalism: tatyana/yazidism: Judaism Tatyana Safety: seatbelt use: always Home Safety: water heater temp set < 120 deg: Yes working smoke detector in home: Yes fire extinguisher in home: Yes carbon monox detector in home: No firearms in home: Yes firearms unloaded and locked: Yes Physical Exam - Physical Exam General Appearance: Present: alert, no apparent distress Head Exam: Present: normal inspection, no evidence of injury Eye Exam: Normal inspection: bilateral, PERRL: bilateral Ears, Nose, Throat: Present: normal ENT inspection Neck: Present: normal inspection Respiratory: Present: other - mild tachypnea, diffuse significant wheezing bilaterally with I;E wheezes. Hypoxia is noted, upper 80s. Cardiovascular/Chest: Present: regular rate, rhythm, normal peripheral pulses Gastrointestinal/Abdominal: Present: normal bowel sounds, nontender, soft Back Exam: Present: normal range of motion Extremity Exam: Present: other - minimal bilateral pretibial edema. No DVT findings Neurological Exam: Present: alert, no motor/sensory deficits Skin Exam: Present: normal color, warm/dry Progress - Results and Orders Patient's Lab Results:: I have reviewed the patient's lab results. - Vital Signs Patient's Vital Signs:: I have reviewed the patient's vital signs. Vital Signs: Vital Signs 04/23/19 10:48 04/23/19 11:08 04/23/19 11:11 Temperature 36.0 C Pulse Rate 83 83 87 Respiratory Rate 30 H 30 H Blood Pressure 156/86 H 159/85 H O2 Sat by Pulse Oximetry 93 87 L 04/23/19 11:19 04/23/19 12:24 Temperature Pulse Rate 84 87 Respiratory Rate 30 H 22 H Blood Pressure O2 Sat by Pulse Oximetry 94 93 - EKG EKG #1 EKG: NSR EKG read: Interp. by me EKG Comments: NSR rate 84. Non-specific ST/T wave changes, no STEMI noted - X-Ray X-Ray #1 X-Ray: chest Interpretation: Interp. by me X-ray Comments: I reviewed images and official radiology report - Progress/Reassessment Chief Complaint: Chest Pain Progress Note-Subjective: 04/23/19 13:25 Patient placed on oxygen for her hypoxia. Given steroids and 3 nebs, still wheezing. Sx C/W COPD exacerbation. Clinically I feel CHF is not the cause of her SOB. No suggestion of PE. D/W Dr Montgomery who saw the patient in the ED and will admit the patient. Patient is agreeable. Departure Clinical Impression: COPD exacerbation, Hypoxia - Departure Disposition: Still a patient Condition: Stable
[2019-04-23] MEDS ORDERED: ALBUTEROL SULFATE/IPRATROPIUM 3 ML NEBU IH PRN (14:27)
[2019-04-23] MEDS ORDERED: FUROSEMIDE 20 MG TABLET PO ONE (15:19)
--- NOTE | 2019-04-23 16:54 | HP ---
Chief Complaint - Chief Complaint Date of Service: 04/23/19 Time of Service: 13:06 Chief Complaint: Shortness of breath x1 day History of Present Illness: 78-year-old female with a past medical history of congestive heart failure, COPD and hypertension presents with complaints of shortness of breath x1 day. She states that her symptoms began yesterday morning and are worse with exertion. She went for an echocardiogram today and was found to be short of breath with walking out of the exam room. She was sent to the emergency department for further evaluation. Echocardiogram EF of 70%, left ventricle cavity normal in size, grade 1 diastolic dysfunction, trace mitral regurg and mild tricuspid regurg. Chest x-ray showed hyperinflation of the lung with pulmonary vascular congestion. She had an oxygen saturation of 87%. She received 3 nebulizer DuoNeb treatments with relief of her symptoms. She received a dose of 60 mg prednisone in the emergency department. She was admitted for COPD exacerbation. Medical History (Updated 04/23/19 @ 14:21 by Susie Ocampo RN) COPD (chronic obstructive pulmonary disease) Congestive heart failure Hypertension Surgical History: Surgical History (Updated 04/05/19 @ 14:09 by Demetrice Dubon RN) History of bunionectomy Family History: Family History (Last Reviewed 04/23/19 @ 13:22 by Antony Licona MD) Mother Father Emphysema/COPD Social History: (Last Reviewed 04/23/19 @ 13:22 by Antony Licona MD) Social History: Marital status: / lives independently: Yes number of children: 3 number of grandchildren: 6 caregiver/support person: Yes caregiver/support person comment: Erica Wadsworth current occupational status: retired Highest education level completed: Associate degree: academi Financial difficulty paying for basics: not very hard Tobacco: Smoking Status: Former smoker Alcohol: alcohol intake: current Alcohol type: wine alcohol intake frequency: a few times a month Substance Use: substance use type: does not use Pets: pets and animals: none Exercise: Physical activity type: bicycling Physical activity counseling: advised >2 times/week res Physical activity functional status: independent ambulation Moderate/strenuous exercise - number of days: 5 frequency: 5-6 times per week duration: 15-30 minutes/day Tatyana/Judaism: tatyana/congregation: [employer] Tatyana Safety: seatbelt use: always Home Safety: water heater temp set < 120 deg: Yes working smoke detector in home: Yes fire extinguisher in home: Yes carbon monox detector in home: No firearms in home: Yes firearms unloaded and locked: Yes Review Of Systems (GEN) - Review of Systems Generalized/Overall Review: Absent: Chills, Fever EENTM: Absent: Eye Pain Respiratory: Present: Shortness of Breath, Wheezing Cardiac: Absent: Chest Pain Abdominal: Absent: Abdominal Pain Misc: All systems neg except as marked Immunizations: IMMUNIZATION HX Immunizations Up to Date No History of Influenza Vaccine No Hx Pneumococcal Vaccination No Allergies/Adverse Reactions: Allergies Allergy/AdvReac Type Severity Reaction Status Date / Time codeine Allergy Mild Hives Verified 04/23/19 14:22 acetaminophen [From Tylenol] AdvReac Intermediate Vomiting Verified 04/23/19 14:22 Home Medications: HOME MEDICATIONS Beta-Carotene(A) W-C , E/Min [Ocuvite] 1 tab PO Q2D 04/05/19 [Last Taken 04/22/19] Bimatoprost [Lumigan 0.01% Ophthalmic Solution] 1 drp EACHEYE HS 04/05/19 [Last Taken 04/22/19] Cholecalciferol [Vitamin D] 2,000 unit PO Q2D 04/05/19 [Last Taken 04/22/19] Cyanocobalamin (Vitamin B-12) [Vitamin B-12] 1,000 mcg PO Q2D 04/05/19 [Last Taken 04/22/19] Albuterol Sulfate [Ventolin HFA] 1 puff INHALATION Q6H #1 inhaler 04/07/19 [Last Taken Unknown] Albuterol Sulfate/Ipratropium [Duoneb 2.5-0.5MG/3ML Soln] 3 ml INHALATION Q6H PRN #1 bottle 04/07/19 [Last Taken 04/23/19] Furosemide [Lasix] 20 mg PO DAILY #30 tab 04/07/19 [Last Taken 04/22/19] Lisinopril [Zestril] 5 mg PO DAILY #30 tab 04/07/19 [Last Taken 04/23/19] Exam - Exam Vital Signs: Vital Signs - Last Taken Temp 36.7 C 04/23/19 14:25 Pulse 89 04/23/19 15:31 Resp 20 04/23/19 14:25 BP 148/72 04/23/19 15:31 Pulse Ox 93 04/23/19 14:25 Constitutional: Present: Alert, Cooperative, Well developed, Well nourished, No distress, Elderly ENT Exam: Present: hearing grossly normal Eye Exam: bilateral eye: normal inspection, PERRL, EOMI Neck: Present: supple, tender midline. Absent: lymphadenopathy (R), lymphadenopathy (L) Back Exam: Present: normal inspection, no CVA tenderness, no vertebral tenderness Respiratory: Present: no respiratory distress, wheezing - Respiratory and expiratory wheeze. Worse on expiration. Wheezing audible throughout all lung martinez bilaterally.. Absent: lungs clear, crackles, rhonchi Cardiovascular/Chest: Present: normal peripheral pulses, regular rate, rhythm, no murmur Peripheral Pulses: dorsalis-pedis (R): 1+, dorsalis-pedis (L): 1+ Abdomen: Present: Normal bowel sounds, soft, nontender Extremity: Present: no pedal edema Skin Exam: Present: normal color, warm/dry Neurologic: Present: alert, normal mood/affect Appearance: Present: appropriate appearance, appropriate insight Eye contact: Present: cooperative, good eye contact Thoughts: Present: normal mood /affect Diagnostic Studies: Abnormal Lab Results 04/23/19 04/23/19 Range/Units 11:05 11:05 Hgb 16.1 H (12.5-16.0) gm/dL Hct 49.4 H (37.0-47.0) % MCH 31.7 H (27-31) pg Lymphocytes % 16.4 L (20-51) % Eosinophils % 11.2 H (0.0-3.0) % Lymphocytes # 1.36 L (1.5-3.5) k/mm3 Eosinophils # 0.9 H (0.0-0.7) k/mm3 Sodium 143 H (132-142) mmol/L Plasma Sodium 143 H (130-142) mmol/L Potassium 4.8 H (3.4-4.6) mmol/L BUN 39 H (3-23) mg/dL Est GFR (Non-Af Amer) 44 L (60-130) mL/min BUN/Creatinine Ratio 31.5 H (9.0-21.6) Laboratory Results WBC 8.3 K/mm3 (4.0-10.5) 04/23/19 11:05 RBC 5.08 M/mm3 (4.2-5.4) 04/23/19 11:05 Hgb 16.1 gm/dL (12.5-16.0) H 04/23/19 11:05 Hct 49.4 % (37.0-47.0) H 04/23/19 11:05 MCV 97.2 fl (78-100) 04/23/19 11:05 MCH 31.7 pg (27-31) H 04/23/19 11:05 MCHC 32.6 g/dl (32-36) 04/23/19 11:05 RDW 13.4 % (11.5-14.0) 04/23/19 11:05 Plt Count 211 K/mm3 (150-450) 04/23/19 11:05 MPV 11.0 fl (8-12.5) 04/23/19 11:05 Immature Gran % (Auto) 0.20 % (0.001-0.429) 04/23/19 11:05 Immature Gran # (Auto) 0.02 K/mm3 (0.000-0.0310) 04/23/19 11:05 65.2 % (42-75.0) 04/23/19 11:05 16.4 % (20-51) L 04/23/19 11:05 6.3 % (0.0-9) 04/23/19 11:05 11.2 % (0.0-3.0) H 04/23/19 11:05 0.7 % (0.0-1.0) 04/23/19 11:05 Nucleated RBC % 0.0 k/mm3 (0-1) 04/23/19 11:05 5.4 K/mm3 (1.3-6.0) 04/23/19 11:05 1.36 k/mm3 (1.5-3.5) L 04/23/19 11:05 0.5 k/mm3 (0.0-1.0) 04/23/19 11:05 0.9 k/mm3 (0.0-0.7) H 04/23/19 11:05 Absolute Basophils 0.1 k/mm3 (0.0-0.1) 04/23/19 11:05 PT 9.9 Seconds (9.1-10.7) 04/23/19 11:05 INR (Anticoag Therapy) 1.00 INR (0.92-1.08) 04/23/19 11:05 PTT (Elsie) 25.1 Seconds (24-32) 04/23/19 11:05 Sodium 143 mmol/L (132-142) H 04/23/19 11:05 143 mmol/L (130-142) H 04/23/19 11:05 Potassium 4.8 mmol/L (3.4-4.6) H 04/23/19 11:05 Chloride 105 mmol/L (97-106) 04/23/19 11:05 Carbon Dioxide 30.6 mmol/L (24-32.6) 04/23/19 11:05 12.2 mmol/L (6.8-13.8) 04/23/19 11:05 BUN 39 mg/dL (3-23) H 04/23/19 11:05 1.24 mg/dL (0.4-1.4) 04/23/19 11:05 Est GFR (Non-Af Amer) 44 mL/min (60-130) L 04/23/19 11:05 31.5 (9.0-21.6) H 04/23/19 11:05 102 mg/dL (70-110) 04/23/19 11:05 Calcium 9.7 mg/dL (7.9-10.9) 04/23/19 11:05 Calcium Adj for Albumin 9.3 mg/dL (8.4-10.2) 04/23/19 11:05 0.4 mg/dL (0.0-1.1) 04/23/19 11:05 AST 20 U/L (0-48) 04/23/19 11:05 ALT 22 U/L (19-67) 04/23/19 11:05 79 U/L (50-170) 04/23/19 11:05 Less than 0.017 ng/mL (0.00-0.10) 04/23/19 11:05 B-Natriuretic Peptide 122 pg/mL (5-550) 04/23/19 11:05 7.7 gm/dL (6.2-8.2) 04/23/19 11:05 4.1 gm/dl (3.4-5.0) 04/23/19 11:05 Assessment/Plan - Narrative Narrative: 78-year-old female with a past medical history of congestive heart failure, COPD and hypertension presents with complaints of shortness of breath x1 day. She states that her symptoms began yesterday morning and are worse with exertion. Chest x-ray showed hyperinflation of the lung with pulmonary vascular congestion. She had an oxygen saturation of 87%. She received 3 nebulizer DuoNeb treatments with relief of her symptoms. She received a dose of 60 mg prednisone in the emergency department. She was admitted for COPD exacerbation. - Assessment/Plan (1) COPD exacerbation Assessment: Start her on duo nebs, oxygen supplementation as needed, and prednisone 40 mg daily. Problem: Acute (2) Hypoxia Assessment: Likely secondary to COPD. Problem: Acute (3) HTN (hypertension) Assessment: Continue home medications. Problem: Chronic Qualifiers: Hypertension type: essential hypertension (4) Diastolic congestive heart failure Assessment: Not in exacerbation, continue home dose of Lasix. Problem: Acute Qualifiers: Heart failure chronicity: chronic Qualified Code(s): I50.32 - Chronic diastolic (congestive) heart failure
[2019-04-23] MEDS: ALBUTEROL SULFATE 2.5 MG/0.5 ML VIAL.NEB IH SCH (18:07)
[2019-04-23] MEDS ORDERED: BIMATOPROST 25 DROP BTL EACHEYE SCH (21:00)
[2019-04-24] MEDS: ALBUTEROL SULFATE 2.5 MG/0.5 ML VIAL.NEB IH SCH ×2 (00:19→06:16)
[2019-04-24 05:55] LABS: Hematocrit 49.5 % (37.0-47.0); Hemoglobin 15.9 gm/dL (12.5-16.0); Mean Cell Volume 97.6 fl (78-100); Mean Corpuscular Hemoglobin 31.4 pg (27-31); Mean Corpuscular Hgb Conc 32.1 g/dl (32-36); Mean Platelet Volume 11.4 fl (8-12.5); Neutrophil # 5.1 K/mm3 (1.3-6.0); Neutrophil % 68.7 % (42-75.0); Platelet Count 220 K/mm3 (150-450); Red Blood Count 5.07 M/mm3 (4.2-5.4); Red Cell Distribution Width 13.6 % (11.5-14.0); White Blood Count 7.5 K/mm3 (4.0-10.5)
[2019-04-24 06:11] LABS: Albumin * 3.8 gm/dl (3.4-5.0); Anion Gap 11.5 mmol/L (6.8-13.8); BUN/Creatinine Ratio 28.1 (9.0-21.6); Bilirubin, Total 0.5 mg/dL (0.0-1.1); Calcium * 9.2 mg/dL (7.9-10.9); Carbon Dioxide 29.8 mmol/L (24-32.6); Potassium 4.3 mmol/L (3.4-4.6); Total Protein 7.3 gm/dL (6.2-8.2)
--- NOTE | 2019-04-24 08:45 | DS ---
(1) COPD exacerbation Problem: Acute (2) Hypoxia Problem: Resolved (3) HTN (hypertension) Problem: Chronic Qualifiers: Hypertension type: essential hypertension Qualified Code(s): I10 - Essential (primary) hypertension (4) Diastolic congestive heart failure Problem: Chronic Qualifiers: Heart failure chronicity: chronic Qualified Code(s): I50.32 - Chronic diastolic (congestive) heart failure Description of Stay: 78-year-old female with a past medical history of congestive heart failure, COPD and hypertension presents with complaints of shortness of breath x1 day. She states that her symptoms began yesterday morning and are worse with exertion. Chest x-ray showed hyperinflation of the lung with pulmonary vascular congestion. She had an oxygen saturation of 87%. She received 3 nebulizer DuoNeb treatments with relief of her symptoms. She received a dose of 60 mg prednisone in the emergency department. She was admitted for COPD exacerbation. She states she feels 100% better this morning. She ambulated without oxygen without difficulty. She is stable for discharge home. She will follow-up with me in the office in 1 week. I will send her home on prednisone 40mg daily for 3 more days. Total of 5 days. Procedures Performed: none Results and Findings: Lab Pending Results 04/23/19 11:05: WBC 8.3, RBC 5.08, Hgb 16.1 H, Hct 49.4 H, MCV 97.2, MCH 31.7 H, MCHC 32.6, RDW 13.4, Plt Count 211, MPV 11.0, Immature Gran % (Auto) 0.20, Immature Gran # (Auto) 0.02, Neutrophils % 65.2, Lymphocytes % 16.4 L, Monocytes % 6.3, Eosinophils % 11.2 H, Basophils % 0.7, Nucleated RBC % 0.0, Neutrophils # 5.4, Lymphocytes # 1.36 L, Monocytes # 0.5, Eosinophils # 0.9 H, Absolute Basophils 0.1 04/23/19 11:05: PT 9.9, INR (Anticoag Therapy) 1.00, PTT ([place]) 25.1 04/23/19 11:05: Sodium 143 H, Plasma Sodium 143 H, Potassium 4.8 H, Chloride 105, Carbon Dioxide 30.6, Anion Gap 12.2, BUN 39 H, Creatinine 1.24, Est GFR (N on-Af Amer) 44 L, BUN/Creatinine Ratio 31.5 H, Random Glucose 102, Calcium 9.7, Calcium Adj for Albumin 9.3, Total Bilirubin 0.4, AST 20, ALT 22, Alkaline Phosphatase 79, Troponin I Less than 0.017, B-Natriuretic Peptide 122, Total Protein 7.7, Albumin 4.1 04/24/19 05:15: WBC 7.5, RBC 5.07, Hgb 15.9, Hct 49.5 H, MCV 97.6, MCH 31.4 H, MCHC 32.1, RDW 13.6, Plt Count 220, MPV 11.4, Immature Gran % (Auto) 0.30, Immature Gran # (Auto) 0.02, Neutrophils % 68.7, Lymphocytes % 18.6 L, Monocytes % 10.1 H, Eosinophils % 2.0, Basophils % 0.3, Nucleated RBC % 0.0, Neutrophils # 5.1, Lymphocytes # 1.39 L, Monocytes # 0.8, Eosinophils # 0.2, Absolute Basophils 0.0 04/24/19 05:15: Sodium 141, Plasma Sodium 141, Potassium 4.3, Chloride 104, Carbon Dioxide 29.8, Anion Gap 11.5, BUN 39 H, Creatinine 1.39, Est GFR (Non-Af Amer) 39 L, BUN/Creatinine Ratio 28.1 H, Random Glucose 98, Calcium 9.2, Calcium Adj for Albumin 9.0, Total Bilirubin 0.5, AST 15, ALT 19, Alkaline Phosphatase 80, Total Protein 7.3, Albumin 3.8 Discharge Location: Home Disposition: Home self-care Condition: Stable Discharge Activity: Activity as tolerated Discharge Diet: Low salt Referrals: Antoinette Montgomery MD [Primary Care Provider] - Prescriptions (Any new or edited meds): predniSONE [Prednisone] 40 mg PO DAILY #6 tab Complete Home Medications List: Complete Home Medication List: Beta-Carotene(A) W-C , E/Min [Ocuvite] 1 tab PO Q2D 04/05/19 Bimatoprost [Lumigan 0.01% Ophthalmic Solution] 1 drp EACHEYE 04/05/19 Cholecalciferol [Vitamin D] 2,000 unit PO Q2D 04/05/19 Cyanocobalamin (Vitamin B-12) [Vitamin B-12] 1,000 mcg PO Q2D 04/05/19 Albuterol Sulfate [Ventolin HFA] 1 puff INHALATION Q6H #1 inhaler 04/07/19 Albuterol Sulfate/Ipratropium [Duoneb 2.5-0.5MG/3ML Soln] 3 ml INHALATION Q6H PRN #1 bottle 04/07/19 Furosemide [Lasix] 20 mg PO DAILY #30 tab 04/07/19 Lisinopril [Zestril] 5 mg PO DAILY #30 tab 04/07/19 predniSONE [Prednisone] 40 mg PO DAILY #6 tab 04/24/19
[2019-04-24] MEDS ORDERED: predniSONE 20 MG TABLET PO SCH (09:00)
[2019-04-24] MEDS ORDERED: LISINOPRIL 5 MG TABLET PO SCH (09:00)
[2019-04-24] MEDS ORDERED: FUROSEMIDE 20 MG TABLET PO SCH (09:00)
[2019-04-24] MEDS ORDERED: CHOLECALCIFEROL 1,000 UNIT CAPSULE PO SCH (09:00)
[2019-04-24] MEDS ORDERED: CYANOCOBALAMIN 1,000 MCG TABLET PO SCH (09:00)
[2019-04-24] MEDS ORDERED: BETA-CAROTENE(A) W-C , E/MIN 1 TAB TABLET PO SCH (09:00)
[2019-04-24 09:34] VITALS: BP 141/75
== END 2019-04-24 10:03 | disposition home or self-care (01) ==
LOC: MS 10:44 → ER 10:44 → MS 14:25
PROVIDERS: ADMIT Internal Medicine; ATTEND Internal Medicine
CPT/HCPCS: 36415; 71020; 71046; 80053; 83519; 83880; 84484; 85025; 85610; 85730; 93005; 94640; 94664; 99285; G0378

== ENCOUNTER 2019-08-25 11:07 | Observation (INO) ==
[2019-08-25] MEDS ORDERED: ALBUTEROL SULFATE/IPRATROPIUM 3 ML NEBU IH ONE (11:13)
--- NOTE | 2019-08-25 11:16 | ERNOTE ---
Dyspnea - Date Date of Service: 08/25/19 - General Presenting Symptoms: shortness of breath, difficulty of breathing Time Seen by Provider: 08/25/19 11:10 Source: patient Exam Limitations: no limitations - Immun/Allergies/Home Medications Immunizations: IMMUNIZATION HX Immunizations Up to Date Yes Immunizations Comment Pt states she does not get shots History of Influenza Vaccine No Hx Pneumococcal Vaccination No Allergies/Adverse Reactions: Allergies codeine Allergy (Mild, Verified 08/25/19 11:14) Hives acetaminophen [From Tylenol] Adverse Reaction (Intermediate, Verified 08/25/19 11:14) Vomiting Home Medications: HOME MEDICATIONS Beta-Carotene(A) W-C , E/Min [Ocuvite] 1 tab PO Q2D 04/05/19 [Last Taken 04/22/19] Bimatoprost [Lumigan 0.01% Ophthalmic Solution] 1 drp EACHEYE HS 04/05/19 [Last Taken 04/22/19] Cholecalciferol [Vitamin D] 2,000 unit PO Q2D 04/05/19 [Last Taken 04/22/19] Cyanocobalamin (Vitamin B-12) [Vitamin B-12] 1,000 mcg PO Q2D 04/05/19 [Last Taken 04/22/19] Albuterol Sulfate [Ventolin HFA] 1 puff INHALATION Q6H #1 inhaler 04/07/19 [Last Taken Unknown] furosemide 20 mg tablet 20 mg PO DAILY #90 tab 06/05/19 [Last Taken Unknown] lisinopril 5 mg tablet 5 mg PO DAILY #90 tab 06/05/19 [Last Taken Unknown] budesonide-formoterol HFA 160 mcg-4.5 mcg/actuation aerosol inhaler 2 inh IH BID #10.2 g 08/21/19 [Last Taken Unknown] ipratropium-albuterol 0.5 mg-3 mg(2.5 mg base)/3 mL nebulization soln 3 ml INHALATION Q6H PRN #180 ml 08/21/19 [Last Taken Unknown] - History of Present Illness Narrative: The patient is a 78 year old female who presents for dyspnea which has been present for 3 days. There are associated symptoms of fatigue, productive cough and nasal drainage with congestion. The patient reports (pain). There are no alleviating factors. There are aggravating factors of activity. Previous treatments have included: Albuterol neb without improvement. The past medical history includes: HTN, COPD and CHF. The social history is positive for former smoker. The patient has had no known ill contacts. Patient states she was ill with URI symptoms over the holidays but symptoms had improved but then worsened again on Tuesday. Review of Systems - Review of Systems Constitutional: Present: chills, fatigue. Absent: fever EYE: Present: no symptoms reported ENT: Present: nose congestion, nasal drainage, sore throat. Absent: ear pain Respiratory: Present: shortness of breath, cough Cardiology: Present: no symptoms reported. Absent: chest pain Gastrointestinal/Abdominal: Present: no symptoms reported. Absent: nausea, vomiting, diarrhea, abdominal pain Genitourinary: Present: no symptoms reported. Absent: dysuria, decreased urinary output Musculoskeletal: Present: no symptoms reported Skin: Present: no symptoms reported. Absent: rash Neurological: Present: no symptoms reported All Other Systems: All systems neg except as marked Medical History (Last Reviewed 08/25/19 @ 11:15 by WOOYD Hart) COPD (chronic obstructive pulmonary disease) Congestive heart failure Hypertension Surgical History: Surgical History (Last Reviewed 08/25/19 @ 11:15 by WOODY Hart) History of bunionectomy Family History: Family History (Last Reviewed 08/25/19 @ 11:15 by WOODY Hart) Mother Father Emphysema/COPD Social History: (Last Reviewed 08/25/19 @ 11:15 by WOODY Hart) Social History: Marital status: / lives independently: Yes number of children: 3 number of grandchildren: 6 caregiver/support person: Yes caregiver/support person comment: Erica Wadsworth current occupational status: retired Highest education level completed: Associate degree: academi Financial difficulty paying for basics: not very hard Tobacco: Smoking Status: Former smoker Alcohol: alcohol intake: current Alcohol type: wine alcohol intake frequency: a few times a month Substance Use: substance use type: does not use Pets: pets and animals: none Exercise: Physical activity type: bicycling Physical activity counseling: advised >2 times/week res Physical activity functional status: independent ambulation Moderate/strenuous exercise - number of days: 5 frequency: 5-6 times per week duration: 15-30 minutes/day Tatyana/Advent: tatyana/yazdanism: Faith Tatyana Safety: seatbelt use: always Home Safety: water heater temp set < 120 deg: Yes working smoke detector in home: Yes fire extinguisher in home: Yes carbon monox detector in home: No firearms in home: Yes firearms unloaded and locked: Yes Physical Exam - Physical Exam General Appearance: Present: wd/wn, alert, moderate distress Head Exam: Present: normal inspection Eye Exam: Normal inspection: bilateral Neck: Present: normal inspection Respiratory: Present: respiratory distress, accessory muscle use, decreased breath sounds, wheezing - inspiratory and expiratory diffuse Cardiovascular/Chest: Present: regular rate, rhythm, no murmur Neurological Exam: Present: alert, oriented, normal mood/affect, no motor/sensory deficits Skin Exam: Present: normal color, warm/dry Progress - Date and Time Seen: Date and Time: 08/25/19 12:15 Results of testing reviewed with patient. Recommend admission due to COPD exacerbation and hypoxia. Patient agrees with plan of care. Discussed case with Dr.Huber montesinos to admit for observation. Will administer IV Rocephin and po azithromycin due to exacerbation. - Results and Orders Patient's Lab Results:: I have reviewed the patient's lab results. - Vital Signs Patient's Vital Signs:: I have reviewed the patient's vital signs. Vital Signs: Vital Signs 08/25/19 11:11 Temperature 35.5 C L Pulse Rate 95 Respiratory Rate 18 Blood Pressure 171/106 H O2 Sat by Pulse Oximetry 91 L - EKG EKG #1 EKG: NSR, other - PAC EKG read: Reviewed by me - X-Ray X-Ray #1 X-Ray: chest Interpretation: Reviewed by me X-ray Comments: No acute cardiopulmonary abnormalities. Diffuse lower lung haziness which is present from previous testing 04/23/19. - Progress/Reassessment Progress:: Improved Progress Note-Subjective: 08/25/19 11:43 Spo2 91% RA following Neb tx. Patient remains to have diminished lung sounds with diffuse expiratory and inspiratory wheezing. Departure Clinical Impression: COPD exacerbation, Hypoxia - Departure Disposition: Still a patient Condition: Good Referrals: Antoinette Montgomery MD [Primary Care Provider] -
[2019-08-25 11:39] LABS: Hematocrit 44.5 % (37.0-47.0); Hemoglobin 14.8 gm/dL (12.5-16.0); Mean Cell Volume 96.5 fl (78-100); Mean Corpuscular Hemoglobin 32.1 pg (27-31); Mean Corpuscular Hgb Conc 33.3 g/dl (32-36); Mean Platelet Volume 10.6 fl (8-12.5); Neutrophil # 5.5 K/mm3 (1.3-6.0); Neutrophil % 65.9 % (42-75.0); Platelet Count 289 K/mm3 (150-450); Red Blood Count 4.61 M/mm3 (4.2-5.4); Red Cell Distribution Width 13.2 % (11.5-14.0); White Blood Count 8.4 K/mm3 (4.0-10.5)
[2019-08-25 11:56] LABS: Troponin I Less than 0.017 ng/mL (0.00-0.10)
[2019-08-25 11:58] LABS: ALT 28 U/L (19-67); AST 20 U/L (0-48); Albumin * 3.9 gm/dl (3.4-5.0); Alkaline Phosphatase * 94 U/L (50-170); Anion Gap 12.4 mmol/L (6.8-13.8); BNP * 210 pg/mL (5-550); BUN/Creatinine Ratio 28.9 (9.0-21.6); Bilirubin, Total 0.4 mg/dL (0.0-1.1); Blood Urea Nitrogen 39 mg/dL (3-23); Ca. Corrected For Albumin 9.5 mg/dL (8.4-10.2); Calcium * 9.7 mg/dL (7.9-10.9); Carbon Dioxide 29.9 mmol/L (24-32.6); Chloride 103 mmol/L (97-106); Glucose * 111 mg/dL (70-110); Potassium 5.3 mmol/L (3.4-4.6); Sodium 140 mmol/L (132-142); Total Protein 7.9 gm/dL (6.2-8.2)
[2019-08-25] MEDS ORDERED: METHYLPREDNISOLONE SOD SUCC/PF 125 MG/2 ML VIAL IV ONE (12:09)
[2019-08-25] MEDS ORDERED: AZITHROMYCIN 250 MG TABLET PO ONE (12:23)
[2019-08-25] MEDS ORDERED: ALBUTEROL SULFATE/IPRATROPIUM 3 ML NEBU IH PRN (16:52)
--- NOTE | 2019-08-25 17:37 | HP ---
Chief Complaint - Chief Complaint Date of Service: 08/25/19 Time of Service: 17:29 Chief Complaint: shortness of breath History of Present Illness: Patient with past medical history of COPD and CHF presents with shortness of breath. She had been having cold symptoms since , with sore throat, and nasal congestion. Her symptoms got better, but then worsened again 3 days prior. Denies fevers. She feels like she has postnasal drip, sinus pressure, shortness of breath, cough, wheeze. She has not noticed any lower extremity swelling. Her appetite is a bit decreased, but she is able to maintain p.o. hydration. She does not use oxygen at home. Denies abdominal symptoms, urinary symptoms, skin complaints. In the ED, her oxygenation was low. PO2 was 55. Her pulse ox improved to 91% with a breathing treatment. She was admitted for COPD exacerbation, and hypoxemia. She was given 125 mg Solu-Medrol and a breathing treatment, and started on Rocephin and azithromycin. Medical History (Last Reviewed 08/25/19 @ 12:46 by Susan Ledesma RN) COPD (chronic obstructive pulmonary disease) Congestive heart failure Hypertension Surgical History: Surgical History (Last Reviewed 08/25/19 @ 12:46 by Susan Ledesma RN) History of bunionectomy Family History: Family History (Last Reviewed 08/25/19 @ 12:46 by Susan Ledesma RN) Mother Father Emphysema/COPD Social History: (Last Reviewed 08/25/19 @ 12:46 by Susan Ldeesma RN) Social History: Marital status: / lives independently: Yes number of children: 3 number of grandchildren: 6 caregiver/support person: Yes caregiver/support person comment: Erica Wadsworth current occupational status: retired Highest education level completed: Associate degree: academi Financial difficulty paying for basics: not very hard Tobacco: Smoking Status: Former smoker Alcohol: alcohol intake: current Alcohol type: wine alcohol intake frequency: a few times a month Substance Use: substance use type: does not use Pets: pets and animals: none Exercise: Physical activity type: bicycling Physical activity counseling: advised >2 times/week res Physical activity functional status: independent ambulation Moderate/strenuous exercise - number of days: 5 frequency: 5-6 times per week duration: 15-30 minutes/day Tatyana/Jehovah'S Witness: tatyana/episcopalian: Episcopal Tatyana Safety: seatbelt use: always Home Safety: water heater temp set < 120 deg: Yes working smoke detector in home: Yes fire extinguisher in home: Yes carbon monox detector in home: No firearms in home: Yes firearms unloaded and locked: Yes Review Of Systems (GEN) - Review of Systems Generalized/Overall Review: Absent: Fever EENTM: Present: Nose Congestion, Throat Pain Respiratory: Present: Cough, Shortness of Breath, Wheezing Cardiac: Absent: Chest Pain, Edema Abdominal: Absent: Vomiting, Constipation, Diarrhea Genitourinary: Present: No Symptoms Reported Musculoskeletal: Present: No Symptoms Reported Skin: Present: No Symptoms Reported Immunizations: IMMUNIZATION HX Immunizations Up to Date Yes Immunizations Comment Pt states she does not get shots History of Influenza Vaccine No Hx Pneumococcal Vaccination No Allergies/Adverse Reactions: Allergies Allergy/AdvReac Type Severity Reaction Status Date / Time codeine Allergy Mild Hives Verified 08/25/19 12:47 acetaminophen [From Tylenol] AdvReac Severe Vomiting Verified 08/25/19 12:47 Home Medications: HOME MEDICATIONS Beta-Carotene(A) W-C , E/Min [Ocuvite] 1 tab PO Q2D 04/05/19 [Last Taken 08/23/19] Bimatoprost [Lumigan 0.01% Ophthalmic Solution] 1 drp EACHEYE HS 04/05/19 [Last Taken 08/24/19] Cholecalciferol [Vitamin D] 2,000 unit PO Q2D 04/05/19 [Last Taken 08/23/19] Cyanocobalamin (Vitamin B-12) [Vitamin B-12] 1,000 mcg PO Q2D 04/05/19 [Last Taken 08/23/19] Albuterol Sulfate [Ventolin HFA] 1 puff INHALATION Q6H #1 inhaler 04/07/19 [Last Taken 08/25/19] furosemide 20 mg tablet 20 mg PO DAILY #90 tab 06/05/19 [Last Taken 08/25/19] lisinopril 5 mg tablet 5 mg PO DAILY #90 tab 06/05/19 [Last Taken 08/25/19] budesonide-formoterol HFA 160 mcg-4.5 mcg/actuation aerosol inhaler 2 inh IH BID #10.2 g 08/21/19 [Last Taken 08/25/19] ipratropium-albuterol 0.5 mg-3 mg(2.5 mg base)/3 mL nebulization soln 3 ml INHALATION Q6H PRN #180 ml 08/21/19 [Last Taken 08/25/19] Exam - Exam Vital Signs: Vital Signs - Last Taken Temp 36.6 C 08/25/19 15:19 Pulse 90 08/25/19 15:19 Resp 22 H 08/25/19 15:19 BP 148/82 08/25/19 15:19 Pulse Ox 91 L 08/25/19 15:19 Constitutional: Present: Alert, Oriented x3, Cooperative, No distress ENT Exam: Present: other - No sinus tenderness Neck: Absent: lymphadenopathy (R), lymphadenopathy (L) Respiratory: Present: no respiratory distress, wheezing Cardiovascular/Chest: Present: regular rate, rhythm Abdomen: Present: soft, nontender Extremity: Absent: lower extremity edema Neurologic: Present: normal mood/affect Eye contact: Present: cooperative Diagnostic Studies: Abnormal Lab Results 08/25/19 08/25/19 08/25/19 Range/Units 11:20 11:20 11:20 MCH 32.1 H (27-31) pg Eosinophils % 3.9 H (0.0-3.0) % pO2 55.6 L (83.0-108.0) mmHg Base Excess -3.1 L (-2.0-3.0) mmol/L ABG O2 Sat (Measured) 88.4 L (94.0-98.0) % Potassium 5.3 H (3.4-4.6) mmol/L BUN 39 H (3-23) mg/dL Est GFR (Non-Af Amer) 40 L (60-130) mL/min BUN/Creatinine Ratio 28.9 H (9.0-21.6) Random Glucose 111 H (70-110) mg/dL Laboratory Results WBC 8.4 K/mm3 (4.0-10.5) 08/25/19 11:20 RBC 4.61 M/mm3 (4.2-5.4) 08/25/19 11:20 Hgb 14.8 gm/dL (12.5-16.0) 08/25/19 11:20 Hct 44.5 % (37.0-47.0) 08/25/19 11:20 MCV 96.5 fl (78-100) 08/25/19 11:20 MCH 32.1 pg (27-31) H 08/25/19 11:20 MCHC 33.3 g/dl (32-36) 08/25/19 11:20 RDW 13.2 % (11.5-14.0) 08/25/19 11:20 Plt Count 289 K/mm3 (150-450) 08/25/19 11:20 MPV 10.6 fl (8-12.5) 08/25/19 11:20 Immature Gran % (Auto) 0.40 % (0.001-0.429) 08/25/19 11:20 Immature Gran # (Auto) 0.03 K/mm3 (0.000-0.0310) 08/25/19 11:20 Neutrophils % 65.9 % (42-75.0) 08/25/19 11:20 Lymphocytes % 22.0 % (20-51) 08/25/19 11:20 Monocytes % 7.4 % (0.0-9) 08/25/19 11:20 Eosinophils % 3.9 % (0.0-3.0) H 08/25/19 11:20 Basophils % 0.4 % (0.0-1.0) 08/25/19 11:20 Nucleated RBC % 0.0 k/mm3 (0-1) 08/25/19 11:20 Neutrophils # 5.5 K/mm3 (1.3-6.0) 08/25/19 11:20 Lymphocytes # 1.85 k/mm3 (1.5-3.5) 08/25/19 11:20 Monocytes # 0.6 k/mm3 (0.0-1.0) 08/25/19 11:20 Eosinophils # 0.3 k/mm3 (0.0-0.7) 08/25/19 11:20 Absolute Basophils 0.0 k/mm3 (0.0-0.1) 08/25/19 11:20 pCO2 38.2 mmHg (32.0-45.0) 08/25/19 11:20 pO2 55.6 mmHg (83.0-108.0) L 08/25/19 11:20 HCO3 21.7 mmol/L (21.0-28.0) 08/25/19 11:20 Total CO2 22.9 mmol/L (19.0-24.0) 08/25/19 11:20 Base Excess -3.1 mmol/L (-2.0-3.0) L 08/25/19 11:20 ABG pH 7.37 (7.35-7.45) 08/25/19 11:20 ABG O2 Sat (Measured) 88.4 % (94.0-98.0) L 08/25/19 11:20 Sodium 140 mmol/L (132-142) 08/25/19 11:20 Plasma Sodium 140 mmol/L (130-142) 08/25/19 11:20 Potassium 5.3 mmol/L (3.4-4.6) H 08/25/19 11:20 Chloride 103 mmol/L (97-106) 08/25/19 11:20 Carbon Dioxide 29.9 mmol/L (24-32.6) 08/25/19 11:20 Anion Gap 12.4 mmol/L (6.8-13.8) 08/25/19 11:20 BUN 39 mg/dL (3-23) H 08/25/19 11:20 Creatinine 1.35 mg/dL (0.4-1.4) 08/25/19 11:20 Est GFR (Non-Af Amer) 40 mL/min (60-130) L 08/25/19 11:20 BUN/Creatinine Ratio 28.9 (9.0-21.6) H 08/25/19 11:20 Random Glucose 111 mg/dL (70-110) H 08/25/19 11:20 Calcium 9.7 mg/dL (7.9-10.9) 08/25/19 11:20 Calcium Adj for Albumin 9.5 mg/dL (8.4-10.2) 08/25/19 11:20 Total Bilirubin 0.4 mg/dL (0.0-1.1) 08/25/19 11:20 AST 20 U/L (0-48) 08/25/19 11:20 ALT 28 U/L (19-67) 08/25/19 11:20 Alkaline Phosphatase 94 U/L (50-170) 08/25/19 11:20 Troponin I Less than 0.017 ng/mL (0.00-0.10) 08/25/19 11:20 B-Natriuretic Peptide 210 pg/mL (5-550) 08/25/19 11:20 Total Protein 7.9 gm/dL (6.2-8.2) 08/25/19 11:20 Albumin 3.9 gm/dl (3.4-5.0) 08/25/19 11:20 Assessment/Plan - Assessment/Plan (1) COPD exacerbation Assessment: She uses Symbicort at baseline, and does not require oxygen at home. She is currently oxygenating on room air. Anticipate this could decrease overnight, given she is in an acute exacerbation. She was given 125 mg of Solu-Medrol in the ED, and will administer 60 mg Solu-Medrol tomorrow. She was started on Rocephin, and will continue while she is hospitalized. She was also started on a azithromycin, and will also continue this. QT is not prolonged on today's EKG. White blood cells also not increased. We will also continue DuoNeb treatments as needed. Anticipate discharge in 24 to 48 hours. Problem: Acute (2) HTN (hypertension) Assessment: We will continue home 5 mg lisinopril. Her blood pressure is a bit high, though it could be because she is short of breath. Will adjust lisinopril if needed. Problem: Chronic Qualifiers: Hypertension type: essential hypertension Qualified Code(s): I10 - Essential (primary) hypertension (3) Diastolic congestive heart failure Assessment: No signs of fluid overload on my exam. Problem: Chronic Qualifiers: Heart failure chronicity: chronic Qualified Code(s): I50.32 - Chronic diastolic (congestive) heart failure (4) Hyperkalemia Assessment: Potassium of 5.5 on admission. Will recheck in the morning. Would anticipate this to decrease after breathing treatments. Problem: Acute
[2019-08-25] MEDS ORDERED: guaiFENesin 100 MG/5 ML SYRUP PO PRN (18:18)
[2019-08-25] MEDS: ALBUTEROL SULFATE 200 PUFF INHALER IH SCH (19:55)
[2019-08-25] MEDS: FLUTICASONE PROPION/SALMETEROL 14 PUFF DISK.W.DEV IH SCH (19:55)
[2019-08-25] MEDS ORDERED: BIMATOPROST 25 DROP BTL EACHEYE SCH (21:00)
[2019-08-26] MEDS: ALBUTEROL SULFATE 200 PUFF INHALER IH SCH ×3 (00:53→14:01)
[2019-08-26] MEDS ORDERED: METHYLPREDNISOLONE SOD SUCC/PF 40 MG/ML VIAL IV ONE (08:00)
[2019-08-26] MEDS: FLUTICASONE PROPION/SALMETEROL 14 PUFF DISK.W.DEV IH SCH (08:25)
[2019-08-26 08:28] LABS: Albumin * 3.9 gm/dl (3.4-5.0); Anion Gap 16.2 mmol/L (6.8-13.8); Bilirubin, Total 0.5 mg/dL (0.0-1.1); Ca. Corrected For Albumin 9.7 mg/dL (8.4-10.2); Calcium * 9.9 mg/dL (7.9-10.9); Carbon Dioxide 27.3 mmol/L (24-32.6); Potassium 5.5 mmol/L (3.4-4.6); Total Protein 8.1 gm/dL (6.2-8.2)
[2019-08-26] MEDS ORDERED: LISINOPRIL 5 MG TABLET PO SCH (09:00)
[2019-08-26] MEDS ORDERED: AZITHROMYCIN 250 MG TABLET PO SCH (09:00)
[2019-08-26] MEDS ORDERED: FUROSEMIDE 20 MG TABLET PO SCH (09:00)
--- NOTE | 2019-08-26 11:01 | DS ---
(1) COPD exacerbation Problem: Acute (2) HTN (hypertension) Problem: Chronic Qualifiers: Hypertension type: essential hypertension Qualified Code(s): I10 - Essential (primary) hypertension (3) Diastolic congestive heart failure Problem: Chronic Qualifiers: Heart failure chronicity: chronic Qualified Code(s): I50.32 - Chronic diastolic (congestive) heart failure (4) Hyperkalemia Problem: Acute Date of Discharge:: 08/26/19 Hospital Course: Patient with past medical history of COPD and CHF presented to the ED with shortness of breath. She had been having cold symptoms since , with sore throat, and nasal congestion. Her symptoms got better, but then worsened again 3 days prior. Denies fevers. She feels like she has postnasal drip, sinus pressure, shortness of breath, cough, wheeze. She has not noticed any lower extremity swelling. Her appetite is a bit decreased, but she is able to maintain p.o. hydration. She does not use oxygen at home. Denies abdominal symptoms, urinary symptoms, skin complaints. In the ED, her oxygenation was low. PO2 was 55. Her pulse ox improved to 91% with a breathing treatment. She was admitted for COPD exacerbation, and hypoxemia. She was given 125 mg Solu-Medrol and a breathing treatment, and started on Rocephin and azithromycin. The following morning, she felt better and was looking forward to going home. She did not require oxygen. Her pulse ox was measure with ambulation, and she decreased to 88%, but recovered quickly with rest. Her potassium level was high at 5.5, without EKG changes. Repeat has been ordered for this week. Procedures Performed: none Results and Findings: Lab Pending Results 08/25/19 11:20: WBC 8.4, RBC 4.61, Hgb 14.8, Hct 44.5, MCV 96.5, MCH 32.1 H, MCHC 33.3, RDW 13.2, Plt Count 289, MPV 10.6, Immature Gran % (Auto) 0.40, Immature Gran # (Auto) 0.03, Neutrophils % 65.9, Lymphocytes % 22.0, Monocytes % 7.4, Eosinophils % 3.9 H, Basophils % 0.4, Nucleated RBC % 0.0, Neutrophils # 5.5, Lymphocytes # 1.85, Monocytes # 0.6, Eosinophils # 0.3, Absolute Basophils 0.0 08/25/19 11:20: pCO2 38.2, pO2 55.6 L, HCO3 21.7, Total CO2 22.9, Base Excess - 3.1 L, ABG pH 7.37, ABG O2 Sat (Measured) 88.4 L 08/25/19 11:20: Sodium 140, Plasma Sodium 140, Potassium 5.3 H, Chloride 103, Carbon Dioxide 29.9, Anion Gap 12.4, BUN 39 H, Creatinine 1.35, Est GFR (Non-Af Amer) 40 L, BUN/Creatinine Ratio 28.9 H, Random Glucose 111 H, Calcium 9.7, Calcium Adj for Albumin 9.5, Total Bilirubin 0.4, AST 20, ALT 28, Alkaline Phosphatase 94, Troponin I Less than 0.017, B-Natriuretic Peptide 210, Total Protein 7.9, Albumin 3.9 08/26/19 08:03: Sodium 138, Plasma Sodium 139, Potassium 5.5 H, Chloride 100, Carbon Dioxide 27.3, Anion Gap 16.2 H, BUN 44 H, Creatinine 1.63 H, Est GFR (Non-Af Amer) 32 L, BUN/Creatinine Ratio 27.0 H, Random Glucose 153 H D, Calcium 9.9, Calcium Adj for Albumin 9.7, Total Bilirubin 0.5, AST 19, ALT 30, Alkaline Phosphatase 94, Total Protein 8.1, Albumin 3.9 Discharge Location: Home Disposition: Home self-care Condition: Fair Discharge Activity: Activity as tolerated Discharge Diet: Resume usual diet Referrals: Antoinette Montgomery MD [Primary Care Provider] - One Week Prescriptions (Any new or edited meds): Cefdinir [Omnicef] 300 mg PO BID #8 cap Transmission Status: Pending to [facility] #[id number] predniSONE [Prednisone] 3 tab PO DAILY #9 tab Transmission Status: Pending to [facility] #[id number] Complete Home Medications List: Complete Home Medication List: Beta-Carotene(A) W-C , E/Min [Ocuvite] 1 tab PO Q2D 04/05/19 Bimatoprost [Lumigan 0.01% Ophthalmic Solution] 1 drp EACHEYE 04/05/19 Cholecalciferol [Vitamin D] 2,000 unit PO Q2D 04/05/19 Cyanocobalamin (Vitamin B-12) [Vitamin B-12] 1,000 mcg PO Q2D 04/05/19 Albuterol Sulfate [Ventolin HFA] 1 puff INHALATION Q6H #1 inhaler 04/07/19 furosemide 20 mg tablet 20 mg PO DAILY #90 tab 06/05/19 lisinopril 5 mg tablet 5 mg PO DAILY #90 tab 06/05/19 budesonide-formoterol HFA 160 mcg-4.5 mcg/actuation aerosol inhaler 2 inh IH BID #10.2 g 08/21/19 ipratropium-albuterol 0.5 mg-3 mg(2.5 mg base)/3 mL nebulization soln 3 ml INHALATION Q6H PRN #180 ml 08/21/19 Cefdinir [Omnicef] 300 mg PO BID #8 cap 08/26/19 predniSONE [Prednisone] 3 tab PO DAILY #9 tab 08/26/19
[2019-08-26 13:18] VITALS: BP 143/65
[2019-08-26] MEDS ORDERED: FLUTICASONE PROPION/SALMETEROL 14 PUFF DISK.W.DEV IH SCH (19:00)
== END 2019-08-26 13:55 | disposition home or self-care (01) ==
LOC: MS 11:07 → ER 11:07 → MS 12:26
PROVIDERS: ADMIT Family Medicine; ATTEND Internal Medicine
DX: I50.32 Chronic diastolic (congestive) heart failure; E87.5 Hyperkalemia; J44.1 Chronic obstructive pulmonary disease with (acute) exacerbation; I10 Essential (primary) hypertension
CPT/HCPCS: 36415; 36600; 71020; 71046; 80053; 82803; 83519; 83880; 84484; 85025; 87040; 93005; 94640; 94664; 94760; 96365; 96375; 99281; 99285; G0378